=== PATIENT | female | born 1950 | race Caucasian/White ===

== ENCOUNTER → 2022-07-10 | Outpatient (CLI) | payer MEDICARE | END | disposition home or self-care (01) | LOC: RESCLI 10:33 | PROVIDERS: ATTEND Internal Medicine | DX: J45.909 Unspecified asthma, uncomplicated (principal); C91.10 Chronic lymphocytic leukemia of B-cell type not having achieved remission; Z85.3 Personal history of malignant neoplasm of breast; Z71.89 Other specified counseling; Z90.710 Acquired absence of both cervix and uterus; Z79.899 Other long term (current) drug therapy ==